=== PATIENT | female | born 1945 | race Caucasian/White ===

== ENCOUNTER → 2023-09-17 12:03 | Outpatient (REF) | payer MEDICARE, SELFPAY ==
[2023-09-17 12:45] LABS: % Basophils 0.5 % (0-2); % Eosinophils 1.7 % (0-6); % Lymphocytes 25.6 % (20.5-51.1); % Monocytes 6.7 % (1.7-9.3); % Neutrophils 65.5 % (42.2-75.2); Absolute Eosinophils 0.1 10^3/uL (0-0.7); Absolute Lymphocytes 1.5 10^3/uL (1.2-3.4); Absolute Monocytes 0.4 10^3/uL (0.1-0.6); Absolute Neutrophils 3.8 10^3/uL (1.4-6.5); Hematocrit 35.5 % (37.0-47.0); Hemoglobin 12.5 g/dL (12.0-16.0); Mean Corp Hgb Conc. 35.2 g/dL (33.0-37.0); Mean Corpuscular Hgb 31.7 pg (27.0-31.0); Mean Corpuscular Volume 90.1 fL (81.0-99.0); Mean Platelet Volume 10.1 fL (7.4-10.4); Nucleated Red Blood Cells % 0 %; Platelet Count 202 10^3/uL (130-400); Red Blood Cell Count 3.94 10^6/uL (4.20-5.40); Red Cell Dist. Width 11.8 % (11.5-14.5); White Blood Cell Count 5.8 10^3/uL (4.8-10.8)
[2023-09-17 13:08] LABS: ALT (SGPT) 22 U/L (0-35); AST (SGOT) 30 U/L (14-36); Albumin 4.2 g/dl (3.5-5.0); Alkaline Phosphatase 67 U/L (38-126); Blood Urea Nitrogen 17 mg/dl (7-17); Calcium 9.4 mg/dl (8.4-10.2); Carbon Dioxide 27 mmol/L (22-30); Chloride 106 mmol/L (98-107); Glucose 82 mg/dl (70-99); Potassium 4.5 mmol/L (3.5-5.1); Sodium 136 mmol/L (135-145); Total Bilirubin 0.7 mg/dl (0.2-1.3); Total Protein 6.2 g/dl (6.3-8.2); eGFR > 60.00
[2023-09-18 09:44] LABS: H. pylori Breath Test Negative (Negative)
== END ==
LOC: REG 12:03
PROVIDERS: ATTENDING PHYSICIAN Family Medicine
DX: K21.9 Gastro-esophageal reflux disease without esophagitis (principal); R10.13 Epigastric pain
CPT/HCPCS: 36415; 80053; 83013; 85025

== ENCOUNTER 2023-10-27 19:54 | Emergency (ER) | payer MEDICARE, SELFPAY ==
[2023-10-27 19:58] VITALS: BP 143/87
[2023-10-27 21:18] VITALS: BP 154/86
--- NOTE | 2023-10-27 21:36 | ED.GENMED ---
History of Present Illness
General
Chief Complaint: Breathing Problem
Source: patient
Exam Limitations: none
Time Seen by Provider: 10/27/23 21:15
Travel History
Have you had any contact with someone who has COVID-19?: No
Do you have any symptoms of coronavirus? Fever > 100 degrees, chills, cough, shortness of breath, sore throat, loss of taste or smell, muscle aches, or headache?: No
History of Present Illness
History of Present Illness:
Increase shortness of breath over the last 2 to 3 days. No chest pain or pleuritic pain. No fever. Started prednisone 30 mg 2 to 3 days ago. Has had intermittent upper abdominal issues. Has seen GI. Scheduled for a upper endoscopy in December.
Past History
Past History
ED Past Medical History: Asthma and COPD
ED Past Surgical History: Orthopedic
Social History
Tobacco: Former smoker
Alcohol: None
Drug: None
Personal:
Living: with family
Employment: Retired
Family History
Family History: Hypertension
Review of Systems
Review of Systems
All Other Systems: Not applicable
Constitutional: Denies fever
Cardiac: Denies chest pain or syncope
Phy Exam
Physical Exam
Physical Exam:
GENERAL: Alert and oriented. Initially mildly tachypneic getting into the bed and moving. This improved as she lies still. Initial pulse ox in the low 90s. Improved to mid 90s
EYE: Orbits normal.
NECK: Supple, no significant adenopathy.
ENT: Pharynx without erythema
CARDIAC: Regular rate and rhythm without any obvious murmurs.
LUNGS: Mild diffuse forced expiratory wheezing. Distant breath sounds
ABDOMEN: Soft, without focal tenderness or distention
NEUROLOGICAL: Alert and oriented , grossly non-focal
SKIN: Warm and dry, no rash or lesion, no discoloration, skin intact.
MUSCULOSKELETAL: No edema,no deformity.Good color
PSYCH: Normal and appropriate interaction.
Scores
Heart Failure Risk
Heart Failure Risk Score: Not Applicable
Course
Orders/Labs/Results
Orders:
Orders
10/27/23 21:30
Electrocardiogram (*1) Stat
Reason for Study: Other
Other Reason for Exam: chest pain
Cardiac Monitoring- Treatment ONCE
EKG- Treatment ONCE
IV Insert/Care/Rem.- Treatment PRN
Dexamethasone Sod Phosphate [Decadron] 8 mg IV NOW STA
Ipratropium/Albuterol Sulfate [Duoneb] 3 ml INH R NOW STA
CR Chest - 2 Views Urgent
Comment:
Reason For Exam: sob
Pulse Ox/cont/shift [RESP] Stat
Quantity: 1
10/27/23 21:46
Basic Metabolic Panel Urgent
COVID-19 Antigen Urgent
Source: Nasal Swab
Complete Blood Count/With Diff Urgent
D-Dimer Urgent
NT-proBNP Urgent
Troponin I Urgent
10/28/23 00:25
Doxycycline [Vibramycin] 100 mg PO NOW STA
Abnormal Lab Results
10/27/23
21:46
RBC 3.55 L 10^6/uL
(4.20-5.40)
Hgb 11.1 L g/dL
(12.0-16.0)
Hct 31.5 L %
(37.0-47.0)
MCH 31.3 H pg
(27.0-31.0)
Absolute Lymphs (auto) 0.6 L 10^3/uL
(1.2-3.4)
Neutrophils % 84.2 H %
(42.2-75.2)
Lymphocytes % 9.2 L %
(20.5-51.1)
D-Dimer 0.62 H ug/mlFEU
(0.00-0.50)
BUN 22 H mg/dl
(7-17)
Glucose 112 H mg/dl
(70-99)
10/27/23 21:46
10/27/23 21:46
Vital Signs
Initial and Last Documented VS:
Initial Vital Signs
Temp Pulse Resp BP Pulse Ox
97.7 F 101 24 143/87 95
10/27/23 19:58 10/27/23 19:58 10/27/23 19:58 10/27/23 19:58 10/27/23 19:58
Last Documented Vital Signs
Temp Pulse Resp BP Pulse Ox
97.7 F 85 18 118/65 95
10/27/23 19:58 10/27/23 22:15 10/27/23 22:15 10/27/23 22:00 10/28/23 00:01
MDM/Problems Addressed
Differential Diagnosis Includes:
Likely COPD exacerbation. Doubt pulmonary emboli or cardiac issue. Workup in progress. Additional steroids nebulizers pending workup
*Critical Care Note
Total Time (30-74mins, 75-104mins- exclusive of procedures): Not Applicable
Data Reviewed
Review of Other/Old Records Reveals: Labs and Records
Update Note
Update Note:
Patient rechecked and in no distress. Pulse ox 96 to 97% on room air. Nontoxic. Mild end expiratory wheezing on forced expiration. Offered admission for inpatient management although medically very reasonable to manage this as an outpatient at
this time. Patient is comfortable with outpatient management. D-dimer is technically elevated over baseline but age-adjusted is normal with a very low clinical suspicion
ED Attending Note
-
Portions of this chart may have been created with voice recognition software.� Occasional wrong word or��sound alike� substitutions may have occurred due to the inherent limitations of voice recognition software.
Discharge Plan
Departure
Patient Disposition: Home (Routine Discharge)
Date of Disposition: 10/28/23
Time of Disposition: 00:26
Patient with high blood pressure during this ER visit?: No
Discharge Problem:
COPD exacerbation
Instructions: Shortness of Breath (Dyspnea) (DC), Exacerbation of COPD (DC)
Prescriptions:
New
doxycycline hyclate 100 mg capsule
100 mg PO BID 10 Days Qty: 20 0RF
prednisone 10 mg tablet
10 mg PO DAILY Qty: 20 0RF
Rx Instructions:
4 tablets day 1 then 1 less tab every other day until gone
No Action
calcium carbonate [Antacid Extra Strength] 300 mg (750 mg) tablet,chewable
1 tab PO DAILY
sertraline 50 MG tablet
50 mg PO HS
tiotropium bromide [Spiriva with HandiHaler] 18 MCG capsule, w/inhalation device
18 mcg inhalation DAILY
fluticasone propion-salmeterol [Advair Diskus] 1 DISK blister with device
1 puff inhalation BID
omeprazole 20 MG capsule,delayed release(DR/EC)
20 mg PO DAILY
docosahexaenoic acid-epa 1 CAP capsule
2 cap PO DAILY
red yeast rice 600 MG capsule
600 mg PO DAILY
levothyroxine 50 MCG tablet
50 mcg PO DAILY
metronidazole 250 MG tablet
250 mg PO QID Qty: 20 0RF
Rx Instructions:
Take for 5 days
levofloxacin 500 MG tablet
500 mg PO DAILY Qty: 5 0RF
Rx Instructions:
Take for 5 days
Referrals:
Magui Pichardo DO [Family Provider] - Follow up in 2-3 days
Interventions
Interventions:
*Risk Screen - Suicide Last Done: 10/27/23 19:58
*General Assessment Last Done: 10/27/23 19:58
*Neglect/Abuse Screening Last Done: 10/27/23 19:58
ED- Fall Risk Assessment Last Done: 10/27/23 21:57
*ED COVID-19 Vaccine History Last Done: 10/28/23 00:38
*Nursing Disposition Last Done: 10/28/23 00:38
ED- Cardiac Assessment Last Done: 10/27/23 21:57
ED- Pulmonary Assessment Last Done: 10/27/23 21:57
Discharge Date and Time
Discharge Date/Time: 10/28/23 00:38
[2023-10-27] MEDS: DUONEB 3 ML INH (21:47)
[2023-10-27] MEDS: DECADRON 8 MG IV (21:47)
[2023-10-27 22:00] VITALS: BP 118/65
[2023-10-27 22:02] LABS: % Basophils 0.2 % (0-2); % Eosinophils 0.2 % (0-6); % Immature Granulocytes 0.5 % (0-0.5); % Lymphocytes 9.2 % (20.5-51.1); % Monocytes 5.7 % (1.7-9.3); % Neutrophils 84.2 % (42.2-75.2); Absolute Lymphocytes 0.6 10^3/uL (1.2-3.4); Absolute Monocytes 0.4 10^3/uL (0.1-0.6); Absolute Neutrophils 5.4 10^3/uL (1.4-6.5); Hematocrit 31.5 % (37.0-47.0); Hemoglobin 11.1 g/dL (12.0-16.0); Mean Corp Hgb Conc. 35.2 g/dL (33.0-37.0); Mean Corpuscular Hgb 31.3 pg (27.0-31.0); Mean Corpuscular Volume 88.7 fL (81.0-99.0); Mean Platelet Volume 9.8 fL (7.4-10.4); Nucleated Red Blood Cells % 0 %; Platelet Count 245 10^3/uL (130-400); Red Blood Cell Count 3.55 10^6/uL (4.20-5.40); Red Cell Dist. Width 11.9 % (11.5-14.5); White Blood Cell Count 6.4 10^3/uL (4.8-10.8)
[2023-10-27 22:17] LABS: D-Dimer 0.62 ug/mlFEU (0.00-0.50)
[2023-10-27 22:18] LABS: Blood Urea Nitrogen 22 mg/dl (7-17); Calcium 9.6 mg/dl (8.4-10.2); Carbon Dioxide 23 mmol/L (22-30); Chloride 106 mmol/L (98-107); Glucose 112 mg/dl (70-99); Potassium 4.7 mmol/L (3.5-5.1); Sodium 135 mmol/L (135-145); eGFR > 60.00
[2023-10-27 22:21] LABS: COVID-19 Antigen Negative (Negative)
[2023-10-27 22:27] LABS: NT-proBNP 767 pg/ml; Troponin I < 0.012 ng/ml
[2023-10-28] MEDS: VIBRAMYCIN 100 MG PO (00:34)
== END 2023-10-28 00:38 | disposition home or self-care (01) ==
LOC: EMR 19:54
PROVIDERS: EMERGENCY PHYSICIAN Emergency Medicine; FAMILY PHYSICIAN Family Medicine
DX: J44.1 Chronic obstructive pulmonary disease with (acute) exacerbation (principal); R10.10 Upper abdominal pain, unspecified; Z11.52 Encounter for screening for COVID-19; Z87.891 Personal history of nicotine dependence
CPT/HCPCS: 99285; 96374; 94640; 94760; 71046; 80048; 83880; 84484; 85025; 85379; 87811; 93005

== ENCOUNTER → 2023-12-19 06:35 | Day surgery (SDC) | payer MEDICARE, SELFPAY | LOC: GI 06:35 | PROVIDERS: ATTENDING PHYSICIAN Specialist; FAMILY PHYSICIAN Family Medicine | DX: K22.2 Esophageal obstruction (principal); K31.7 Polyp of stomach and duodenum; K26.9 Duodenal ulcer, unspecified as acute or chronic, without hemorrhage or perforation; K31.89 Other diseases of stomach and duodenum; R10.13 Epigastric pain | CPT/HCPCS: 43239; 88305; 88342 ==

== ENCOUNTER → 2024-02-12 07:12 | Outpatient (REF) | payer MEDICARE, SELFPAY ==
[2024-02-12 08:28] LABS: % Basophils 0.8 % (0-2); % Eosinophils 3.6 % (0-6); % Immature Granulocytes 0.2 % (0-0.5); % Lymphocytes 32.7 % (20.5-51.1); % Monocytes 8.3 % (1.7-9.3); % Neutrophils 54.4 % (42.2-75.2); Absolute Eosinophils 0.2 10^3/uL (0-0.7); Absolute Lymphocytes 1.6 10^3/uL (1.2-3.4); Absolute Monocytes 0.4 10^3/uL (0.1-0.6); Absolute Neutrophils 2.7 10^3/uL (1.4-6.5); Hematocrit 36.9 % (37.0-47.0); Hemoglobin 12.3 g/dL (12.0-16.0); Mean Corp Hgb Conc. 33.3 g/dL (33.0-37.0); Mean Corpuscular Hgb 30.6 pg (27.0-31.0); Mean Corpuscular Volume 91.8 fL (81.0-99.0); Mean Platelet Volume 10.7 fL (7.4-10.4); Nucleated Red Blood Cells % 0 %; Platelet Count 203 10^3/uL (130-400); Red Blood Cell Count 4.02 10^6/uL (4.20-5.40); Red Cell Dist. Width 12.6 % (11.5-14.5)
[2024-02-12 09:08] LABS: HDL Cholesterol 90 mg/dl; Iron 156 ug/dl (37-170); LDL Cholesterol, Calculated 104 mg/dl; Magnesium 1.9 mg/dl (1.6-2.3); Total Cholesterol 208 mg/dl (50-199); Triglyceride 73 mg/dl (10-149); Very Low Density Lipoprotein 14 mg/dl (0-30)
[2024-02-12 09:23] LABS: TSH Reflex To Free T4 2.53 uIU/ml (0.47-4.68)
[2024-02-12 09:26] LABS: Percent Saturation 55 % (20-50); Total Iron Binding Capacity 282 ug/dl (265-497)
[2024-02-12 09:28] LABS: Ferritin 36.1 ng/ml (11.1-264.0)
[2024-02-12 09:42] LABS: Vitamin B12 > 1000 pg/ml (239-931)
== END ==
LOC: REG 07:12
PROVIDERS: ATTENDING PHYSICIAN Family Medicine
DX: L65.9 Nonscarring hair loss, unspecified (principal); Z13.220 Encounter for screening for lipoid disorders; E03.9 Hypothyroidism, unspecified; D64.9 Anemia, unspecified; D51.8 Other vitamin B12 deficiency anemias
CPT/HCPCS: 36415; 80061; 82607; 82728; 83540; 83550; 83735; 84443; 85025

== ENCOUNTER → 2024-05-04 10:02 | Outpatient (REF) | payer MEDICARE, SELFPAY | LOC: RAD 10:02 | PROVIDERS: ATTENDING PHYSICIAN Family Medicine | DX: M81.0 Age-related osteoporosis without current pathological fracture (principal) | CPT/HCPCS: 77080 ==

== ENCOUNTER 2024-06-03 09:44 | Emergency (ER) | payer MEDICARE, SELFPAY ==
[2024-06-03 09:52] VITALS: BP 117/82
--- NOTE | 2024-06-03 10:48 | ED.GENMED ---
History of Present Illness
General
Chief Complaint: Abdominal Symptoms
Time Seen by Provider: 06/03/24 10:28
History of Present Illness
History of Present Illness:
78-year-old female with history of COPD and anemia presenting to the emergency department for lower abdominal pain and constipation. Patient reports for the past 5 days she has been having lower abdominal pain and constipation. She reports 2 days
ago she did have a small bowel movement, however it was very hard and small. She reports history of obstruction in the past which is her primary concern. She does take stool softeners. She denies vomiting. She has been passing little gas. She
denies chest pain or difficulty breathing. She denies any abdominal surgeries. She denies fever. She denies additional acute medical complaints
Past History
Past History
ED Past Medical History: Asthma and COPD
ED Past Surgical History: Orthopedic
Social History
Tobacco: Former smoker
Alcohol: None
Drug: None
Personal:
Living: with family
Employment: Retired
Family History
Family History: Hypertension
Phy Exam
Physical Exam
Physical Exam:
General: Well-appearing, no clinical signs of dehydration, nontoxic and in no acute distress
HEENT: protecting airway
Neck: appears supple
CV: Normal heart rate, regular rhythm
Resp: No accessory muscle use, no increased work of breathing, lungs clear to auscultation bilaterally
Abd: Soft and non-distended, generalized tenderness to lower abdomen without rebound or guarding
Extremities: No deformities, no swelling
Neuro: alert, no focal neurologic deficit
: deferred
Rectal: deferred
Psych: Normal affect
Skin: Intact
Course
Orders/Labs/Results
Orders:
Orders
06/03/24 11:00
CT Abd/pelvis W Iv Cont Urgent
Comment:
Reason For Exam: abdominal pain and constipation, hx obstruction
Ketorolac [Toradol] 15 mg IV NOW STA
06/03/24 11:17
Complete Blood Count/With Diff Urgent
Comprehensive Metabolic Panel Urgent
06/03/24 12:02
Urinalysis Reflex To Culture Urgent
Date Specimen was Collected: 06/03/24
Time Specimen was Collected: 11:59
Urine Microscopic Reflex Cult Urgent
06/03/24 13:11
Phosphate Enema [Fleet Phosphate Enema-Adult] 135 ml RECTAL NOW STA
Abnormal Lab Results
06/03/24 06/03/24
11:17 12:02
WBC 4.2 L 10^3/uL
(4.8-10.8)
RBC 3.70 L 10^6/uL
(4.20-5.40)
Hgb 11.7 L g/dL
(12.0-16.0)
Hct 33.5 L %
(37.0-47.0)
MCH 31.6 H pg
(27.0-31.0)
Absolute Lymphs (auto) 1.0 L 10^3/uL
(1.2-3.4)
Total Protein 6.0 L g/dl
(6.3-8.2)
Urine Ketones Trace A
(Negative)
Ur Occult Blood Reflex 1+ A
(Negative)
Urine RBC 3-6 A /HPF
(0-2)
06/03/24 11:17
06/03/24 11:17
Vital Signs
Initial and Last Documented VS:
Initial Vital Signs
Temp Pulse Resp BP Pulse Ox
98.1 F 84 18 117/82 97
06/03/24 09:52 06/03/24 09:52 06/03/24 09:52 06/03/24 09:52 06/03/24 09:52
Last Documented Vital Signs
Temp Pulse Resp BP Pulse Ox
98.5 F 86 20 115/81 99
06/03/24 11:19 06/03/24 11:19 06/03/24 11:19 06/03/24 11:19 06/03/24 11:19
MDM/Problems Addressed
MDM/Problems Addressed:
78-year-old female with history of COPD and anemia presenting to the emergency department for lower abdominal pain and constipation. Vital signs on arrival are normal.
On exam patient is well-appearing, nontoxic, no acute distress or discomfort. Patient is nontoxic. On abdominal exam, generalized tenderness to the lower abdomen without distention. Audible bowel sounds. Lower suspicion for obstruction, however
patient notes that the pain has been severe and feels similar to when she had an obstruction in the past. For this reason, will obtain CT imaging for rule out, as well as laboratory analysis. Toradol administered for pain.
13:10 -patient's labs are unremarkable. CT without obstructive pathology, does show constipation. Will try enema. Otherwise feel stable for discharge with continued outpatient supportive therapy.
*Critical Care Note
Total Time (30-74mins, 75-104mins- exclusive of procedures): Not Applicable
ED Attending Note
-
Portions of this chart may have been created with voice recognition software.� Occasional wrong word or��sound alike� substitutions may have occurred due to the inherent limitations of voice recognition software.
Discharge Plan
Departure
Prescriptions:
No Action
calcium carbonate [Antacid Extra Strength] 300 mg (750 mg) tablet,chewable
1 tab PO DAILY
sertraline 50 MG tablet
50 mg PO HS
tiotropium bromide [Spiriva with HandiHaler] 18 MCG capsule, w/inhalation device
18 mcg inhalation DAILY
fluticasone propion-salmeterol [Advair Diskus] 1 DISK blister with device
1 puff inhalation BID
omeprazole 20 MG capsule,delayed release(DR/EC)
20 mg PO DAILY
docosahexaenoic acid-epa 1 CAP capsule
2 cap PO DAILY
red yeast rice 600 MG capsule
600 mg PO DAILY
levothyroxine 50 MCG tablet
50 mcg PO DAILY
metronidazole 250 MG tablet
250 mg PO QID Qty: 20 0RF
Rx Instructions:
Take for 5 days
levofloxacin 500 MG tablet
500 mg PO DAILY Qty: 5 0RF
Rx Instructions:
Take for 5 days
doxycycline hyclate 100 mg capsule
100 mg PO BID 10 Days Qty: 20 0RF
prednisone 10 mg tablet
10 mg PO DAILY Qty: 20 0RF
Rx Instructions:
4 tablets day 1 then 1 less tab every other day until gone
Referrals:
Magui Pichardo DO [Family Provider] -
Interventions
Interventions:
*Risk Screen - Suicide Last Done: 06/03/24 09:52
*General Assessment Last Done: 06/03/24 09:52
*Neglect/Abuse Screening Last Done: 06/03/24 09:52
ED- Fall Risk Assessment Last Done: 06/03/24 11:19
*ED COVID-19 Vaccine History Last Done: 06/03/24 11:19
MR-Mtbpsd-Cxmvryrntg Assessment Last Done: 06/03/24 11:19
Discharge Date and Time
Print Language: UPPER SORBIAN
--- NOTE | 2024-06-03 10:52 | EDRN ---
Dr. Peck currently at the pts bedside
[2024-06-03 11:19] VITALS: BP 115/81; BMI 20.1
[2024-06-03] MEDS: TORADOL 15 MG IV (11:20)
[2024-06-03 11:37] LABS: ALT (SGPT) 25 U/L (0-35); AST (SGOT) 31 U/L (14-36); Alkaline Phosphatase 60 U/L (38-126); Blood Urea Nitrogen 14 mg/dl (7-17); Calcium 9.4 mg/dl (8.4-10.2); Carbon Dioxide 26 mmol/L (22-30); Chloride 105 mmol/L (98-107); Estimated Creatinine Clearance 51 ml/min; Glucose 86 mg/dl (70-99); Potassium 4.3 mmol/L (3.5-5.1); Sodium 140 mmol/L (135-145); Total Bilirubin 0.6 mg/dl (0.2-1.3); eGFR > 60.00
[2024-06-03 12:08] LABS: % Eosinophils 1.9 % (0-6); % Immature Granulocytes 0.2 % (0-0.5); % Lymphocytes 23.6 % (20.5-51.1); % Monocytes 7.2 % (1.7-9.3); % Neutrophils 66.1 % (42.2-75.2); Absolute Eosinophils 0.1 10^3/uL (0-0.7); Absolute Monocytes 0.3 10^3/uL (0.1-0.6); Absolute Neutrophils 2.8 10^3/uL (1.4-6.5); Hematocrit 33.5 % (37.0-47.0); Hemoglobin 11.7 g/dL (12.0-16.0); Mean Corp Hgb Conc. 34.9 g/dL (33.0-37.0); Mean Corpuscular Hgb 31.6 pg (27.0-31.0); Mean Corpuscular Volume 90.5 fL (81.0-99.0); Mean Platelet Volume 10.3 fL (7.4-10.4); Nucleated Red Blood Cells % 0 %; Platelet Count 174 10^3/uL (130-400); Red Cell Dist. Width 12.5 % (11.5-14.5); White Blood Cell Count 4.2 10^3/uL (4.8-10.8)
[2024-06-03 12:20] LABS: Urine Albumin Negative (Neg - Trace); Urine Bilirubin Negative (Negative); Urine Character Clear (Clear); Urine Color Yellow; Urine Glucose Negative (Negative); Urine Ketone Trace (Negative); Urine Leukocyte Negative (Negative); Urine Nitrite Negative (Negative); Urine Occult Blood 1+ (Negative); Urine Specific Gravity 1.015 (<1.030); Urine Urobilinogen Negative (Neg - 1+)
[2024-06-03 12:28] LABS: Urine Amorphous Seen
[2024-06-03 12:29] LABS: Urine White Cell 0-2 /HPF (0-5)
[2024-06-03] MEDS: FLEET PHOSPHATE ENEMA-ADULT 135 ML RECTAL (13:23)
--- NOTE | 2024-06-03 13:33 | EDRN ---
fleet enema performed and completed
--- NOTE | 2024-06-03 13:47 | EDRN ---
the pt came to the door and spoke to this RN who was sitting at the nurses station outside of the pts room and stated, 'It didn't work, i just pooped clear liquid, what else are you going to do for me, this is ridiculous, i'm just uncomfortable, i
saved it in the toilet and didn't flush and i want the doctor to look at it', this RN notified Dr. Peck who is at the pts bedside
[2024-06-03] MEDS: CITROMA 300 ML PO (14:16)
== END 2024-06-03 14:17 | disposition home or self-care (01) ==
LOC: EMR 09:44
PROVIDERS: EMERGENCY PHYSICIAN Student in an Organized Health Care Education/Training Program; FAMILY PHYSICIAN Family Medicine
DX: K59.00 Constipation, unspecified (principal); D64.9 Anemia, unspecified; J44.9 Chronic obstructive pulmonary disease, unspecified; Z87.891 Personal history of nicotine dependence
CPT/HCPCS: 99285; 96374; 74177; 80053; 81003; 81015; 85025; Q9967

== ENCOUNTER → 2024-07-21 12:07 | Outpatient (REF) | payer MEDICARE, SELFPAY | LOC: WDC 12:07 | PROVIDERS: ATTENDING PHYSICIAN Family Medicine | DX: Z12.31 Encounter for screening mammogram for malignant neoplasm of breast (principal) | CPT/HCPCS: 77063; 77067 ==

== ENCOUNTER → 2024-12-10 12:33 | Outpatient (REF) | payer MEDICARE, SELFPAY | LOC: RCS 12:33 | PROVIDERS: ATTENDING PHYSICIAN Internal Medicine Cardiovascular Disease; FAMILY PHYSICIAN Family Medicine | DX: I05.0 Rheumatic mitral stenosis (principal) | CPT/HCPCS: 93306 ==

== ENCOUNTER → 2025-01-27 08:29 | Outpatient (REF) | payer MEDICARE, SELFPAY | LOC: RAD 08:29 | PROVIDERS: ATTENDING PHYSICIAN Family Medicine | DX: M25.552 Pain in left hip (principal) | CPT/HCPCS: 72110; 73502 ==

== ENCOUNTER → 2025-03-21 10:28 | Outpatient (REF) | payer MEDICARE, SELFPAY | LOC: PAVMRI 10:28 | PROVIDERS: ATTENDING PHYSICIAN Physician Assistant; FAMILY PHYSICIAN Family Medicine | DX: M54.16 Radiculopathy, lumbar region (principal) | CPT/HCPCS: 72148 ==

== ENCOUNTER → 2025-05-19 14:56 | Outpatient (REF) | payer MEDICARE, SELFPAY | LOC: REG 14:56 | PROVIDERS: ATTENDING PHYSICIAN Nurse Practitioner Adult Health; FAMILY PHYSICIAN Family Medicine | DX: J44.9 Chronic obstructive pulmonary disease, unspecified (principal) | CPT/HCPCS: 87070; 87077; 87205 ==

== ENCOUNTER → 2025-06-03 12:33 | Outpatient (REF) | payer MEDICARE, SELFPAY | LOC: RCS 12:33 | PROVIDERS: ATTENDING PHYSICIAN Family Medicine | DX: M79.602 Pain in left arm (principal) | CPT/HCPCS: 93005 ==

== ENCOUNTER → 2025-07-07 12:13 | Outpatient (REF) | payer MEDICARE, SELFPAY | LOC: RAD 12:13 | PROVIDERS: ATTENDING PHYSICIAN Internal Medicine Critical Care Medicine; FAMILY PHYSICIAN Family Medicine | DX: J44.9 Chronic obstructive pulmonary disease, unspecified (principal); J47.9 Bronchiectasis, uncomplicated; R05.3 Chronic cough | CPT/HCPCS: 71250 ==

== ENCOUNTER → 2025-07-22 11:38 | Outpatient (REF) | payer MEDICARE, SELFPAY | LOC: WDC 11:38 | PROVIDERS: ATTENDING PHYSICIAN Family Medicine | DX: Z12.31 Encounter for screening mammogram for malignant neoplasm of breast (principal) | CPT/HCPCS: 77063; 77067 ==